=== PATIENT | female | born 1990 | race Caucasian/White ===

== ENCOUNTER 2020-07-04 10:07 | Emergency (ER) | payer OTHER, SELFPAY ==
--- NOTE | ~2020-07-04 | XR_ITS ---
EXAMINATION: XR knee RT 3V EXAM DATE: 07/04/2020 11:03 INDICATION: Initial encounter following injury, with pain of the right knee. Twisting. TECHNIQUE: Three projections of the right knee. There is no prior study for comparison. FINDINGS: No evidence osteochondral defect or joint body in the right knee joint. There are no acu te fractures or dislocations identified. There is no subcutaneous gas. No joint effusion. The soft t issue is unremarkable. There are no radiopaque foreign bodies. IMPRESSION: 1. Unremarkable right knee exam. Reviewed, dictated and finalized at location A.
[2020-07-04 10:12] VITALS: BP 158/114; PULSE 123; RESP 24; TEMP 36.5; O2SAT 99
--- NOTE | 2020-07-04 10:37 | ED.GENADULT ---
HPI - General Adult General Chief complaint: Extremity Injury, Lower Stated complaint: Right Knee Injury Time Seen by Provider: 07/04/20 10:08 Source: patient Mode of arrival: ambulatory Limitations: no limitations History of Present Illness HPI narrative: Patient is a 30-year-old female who presents to emergency department for evaluation of right knee pain patient notes she went on a hike with a friend and then developed pain in the knee and swelling notes that she has a history of issues with her knees secondary to athletics in the past patient on arrival to emergency department is in no distress took ibuprofen earlier today denies other injuries or complaints or any illness patient does note that she is anxious about the injury and possibility of needing surgery and being out of work but is otherwise in no distress and does not appear uncomfortable upon arrival Related Data Allergies Allergy/AdvReac Type Severity Reaction Status Date / Time No Known Allergies Allergy Verified 07/04/20 10:21 Review of Systems Review of Systems: All systems reviewed & are unremarkable except as noted in HPI and below PMFSH Surgical History Surgical History (Updated 07/04/20 @ 10:42 by Dereck Cintron PA-C) History of orthopedic surgery Social History Social History (Updated 07/04/20 @ 10:42 by Dereck Cintron PA-C) Smoking status: Never smoker Gender identity (if verbalized by the patient): Female Exam Narrative: Exam Narrative: GENERAL: Well-appearing, well-nourished, and in no acute distress. HEAD: Normocephalic, atraumatic. EYES: PERRLA and EOMI. ENT: Nares clear, no rhinorrhea or epistaxis. Mucous membranes moist. CHEST: Clear to auscultation. No respiratory distress. No wheezes rales or rhonchi HEART: Regular rate and rhythm. No murmur heard. Normal peripheral pulses. EXTREMITIES: Small area of swelling about the right knee no other abnormalities tender along the lateral aspect SKIN: Warm, dry, no rash. NEURO: No focal deficits. Alert and oriented x3. Neurovascularly intact PSYCH: Normal mood and affect. Course Course Emergency Course: Patient with nonconcerning x-ray will be discharged with Tray wrap did not want crutches will follow with orthopedic surgery and primary care for further evaluation. Patient agrees with this plan. Vital Signs Vital signs: Vital Signs Temperature 97.7 F 07/04/20 10:12 Pulse Rate 123 H 07/04/20 10:12 Respiratory Rate 24 H 07/04/20 10:12 Blood Pressure 158/114 H 07/04/20 10:12 Pulse Oximetry 99 07/04/20 10:12 Temperature 97.7 F 07/04/20 10:12 Pulse Rate 99 07/04/20 11:18 Respiratory Rate 18 07/04/20 11:18 Blood Pressure 155/116 H 07/04/20 11:18 Pulse Oximetry 99 07/04/20 11:18 Medical Decision Making MDM Narrative Medical decision making narrative: Patients injury or pain is consistent with musculoskeletal etiology. No signs of neurological or vascular compromise on exam. Compartments and tisues are soft without signs of compartment syndrome. Pain is felt appropriate for further evaluation on an outpatient basis. Vital Signs Vital Signs: Vital Signs Temperature 97.7 F 07/04/20 10:12 Pulse Rate 123 H 07/04/20 10:12 Respiratory Rate 24 H 07/04/20 10:12 Blood Pressure 158/114 H 07/04/20 10:12 Pulse Oximetry 99 07/04/20 10:12 Temperature 97.7 F 07/04/20 10:12 Pulse Rate 99 07/04/20 11:18 Respiratory Rate 18 07/04/20 11:18 Blood Pressure 155/116 H 07/04/20 11:18 Pulse Oximetry 99 07/04/20 11:18 Imaging Data Radiologist's impression: ITS Impressions Knee X-Ray 07/04/20 11:06 IMPRESSION: 1. Unremarkable right knee exam. Discharge Plan Discharge Clinical Impression: Acute internal derangement of knee Patient Disposition: Home, Self-Care Condition: Stable Instructions: Antibiotic Form, Arthralgia (ED) Additional Instructions: Wear Tray wrap with limited weight on the affec
[2020-07-04 10:40] VITALS: BP 156/108; PULSE 119; RESP 19; O2SAT 100
[2020-07-04] MEDS: ACETAMINOPHEN 325 MG TABLET 650 MG PO (10:40)
[2020-07-04 11:18] VITALS: BP 155/116; PULSE 99; RESP 18; O2SAT 99
[2020-07-04 11:43] VITALS: BP 152/98; PULSE 101; RESP 21; O2SAT 100
== END 2020-07-04 11:44 | disposition home or self-care (01) ==
PROVIDERS: Emergency Provider Emergency Medicine
DX: S83.206A Unspecified tear of unspecified meniscus, current injury, right knee, initial encounter (principal); X50.9XXA Other and unspecified overexertion or strenuous movements or postures, initial encounter
CPT/HCPCS: 73562; 99283; A9270

== ENCOUNTER 2021-08-11 14:15 | Emergency (ER) | payer OTHER, SELFPAY ==
[2021-08-11 14:16] VITALS: BP 147/91; PULSE 136; RESP 18; TEMP 36.4; O2SAT 100
--- NOTE | 2021-08-11 14:34 | ED.SKABFB ---
HPI - Skin/Abscess/Foreign Bdy General Chief complaint: Skin/Abscess/Foreign Body Stated complaint: tooth abcess Time Seen by Provider: 08/11/21 14:25 Source: patient Mode of arrival: ambulatory Limitations: no limitations History of Present Illness HPI narrative: This is a 31 year old female that presents to the ER for a dental abscess. Reports she noted some pain in her tooth 2 days ago. Yesterday she noted some swelling around the area. Today when she woke up the swelling was much worse. She went to urgent care who sent here here for evaluation. Denies fever or drainage. Related Data Allergies Allergy/AdvReac Type Severity Reaction Status Date / Time cefixime [From Suprax] Allergy Mild unknown Verified 08/11/21 14:15 erythromycin base AdvReac Mild rash Verified 08/11/21 14:15 [From Pediazole] sulfisoxazole AdvReac Mild rash Verified 08/11/21 14:15 [From Pediazole] Review of Systems Review of Systems: CONSTITUTIONAL: Denies fever ENT: Reports dentalgia All systems reviewed & are unremarkable except as noted in HPI and below PMFSH Past Medical History Medical History (Updated 08/11/21 @ 15:03 by Jadyn Hernandez PA-C) Allergies Arthritis Right knee pain Surgical History Surgical History History of orthopedic surgery left ankle, 2014 Family History Family History (Updated 08/01/20 @ 14:48 by Darrick Viramontes MD) Other Arthritis Social History Social History Smoking status: Never smoker Alcohol intake: never Additional occupation/education comments: [employer] Gender identity (if verbalized by the patient): Female Exam Narrative: GENERAL: Well-appearing, well-nourished, and in no acute distress. HEAD: Normocephalic, atraumatic. EYES: EOMI. ENT: Mucous membranes moist. Mild to moderate right sided facial swelling without erythema. Oropharynx without tonsillar hypertrophy exudate or other lesions. Tooth #3 with surrounding erythema with central fluctuance NECK: Supple. No adenopathy or masses. CHEST: Clear to auscultation. No respiratory distress. No wheezes rales or rhonchi HEART: Regular rate and rhythm. No murmur heard. Normal peripheral pulses. EXTREMITIES: Normal range of motion. No edema. SKIN: Warm, dry, no rash. NEURO: No focal deficits. Alert and oriented x3. PSYCH: Normal mood and affect Course Vital Signs Vital signs: Vital Signs Temperature 97.6 F 08/11/21 14:16 Pulse Rate 136 H 08/11/21 14:16 Respiratory Rate 18 08/11/21 14:16 Blood Pressure 147/91 H 08/11/21 14:16 Pulse Oximetry 100 08/11/21 14:16 Temperature 97.6 F 08/11/21 14:16 Pulse Rate 110 H 08/11/21 15:48 Respiratory Rate 16 08/11/21 15:48 Blood Pressure 147/91 H 08/11/21 14:16 Pulse Oximetry 99 08/11/21 15:48 Procedures Abscess I/D oral: Date of Incision: 08/11/21 Time of Incision: 14:48 Side (if applicable): right Local Anesthetic: none (Cetacaine) Technique: incised with #11 blade Packing used?: none I&D Results: Pus and Blood MDM - Skin/Abscess/Foreign Bdy MDM Narrative Medical decision making narrative: Patient presents to the ER for dental abscess. She is afebrile and nontoxic appearing. Tachycardic upon arrival. This improved with treatment of her pain. Abscess was successfully drained. Patient given first dose of antibiotic in the ED. Will be discharged with oral antibiotics. Instructed to have close follow up with a dentist. She was given warnings to return to the ER Critical Care Time Critical Care Time Critical Care Time: No Discharge Plan Discharge Clinical Impression: Dental abscess Patient Disposition: Home, Self-Care Condition: Stable Instructions: Antibiotic Form, Abscess (ED) Additional Instructions: Return to the Emergency Department if you experience fever >101, increasing swelling and
[2021-08-11] MEDS: KETOROLAC 30 MG/ML VIAL (*BKC) IM (15:23)
[2021-08-11] MEDS: BENZOCAINE/TETRACAINE SPRAY (*SP) 56 ML AEROSOL 1 SPRAY MUCOUS MEM (15:24)
[2021-08-11 15:48] VITALS: PULSE 110; RESP 16; O2SAT 99
== END 2021-08-11 15:49 | disposition home or self-care (01) ==
PROVIDERS: Emergency Provider Emergency Medicine
DX: K04.7 Periapical abscess without sinus (principal)
CPT/HCPCS: 41800; 96372; 99284; A9270; J1885

== ENCOUNTER 2021-12-12 18:17 | Emergency (ER) | payer OTHER, SELFPAY ==
[2021-12-12] VITALS (10 sets, daily range): BP systolic 114–131; BP diastolic 64–98; PULSE 105–116; RESP 14–19; TEMP 36.6; O2SAT 100
--- NOTE | ~2021-12-12 | CT_ITS ---
EXAMINATION: CTA chest PE protocol DATE: 12/12/2021 21:37 CDT INDICATION: Shortness of breath. Positive d-dimer. TECHNIQUE: Computed tomographic angiography (CTA) of the chest was performed with 100 mL Omnipaque-35 0 intravenous contrast. The dose-length product was 827.77 mGy-cm. Maximum intensity projection 3D-re constructions of the aorta and other arteries were constructed by the technologist on a separate work station. Automated exposure control and iterative reconstruction technique were employed. COMPARISON: None. FINDINGS: No significant pleural or pericardial effusion. Heart size is normal. No evidence for thora cic aortic aneurysm or dissection. No thoracic lymphadenopathy. Study is technically adequate without evidence for pulmonary embolism. No endobronchial lesions. Gallstones. Splenomegaly. No focal airspa ce disease. No pneumothorax. No endobronchial lesions. IMPRESSION: 1. No evidence for pulmonary embolism. No acute cardiopulmonary disease. 2: Cholelithiasis. 3: Splenomegaly. Reviewed, dictated and finalized at location A.
--- NOTE | 2021-12-12 18:18 | ECG_ITS ---
Measurements Intervals [place] Rate: 113 P: 42 OK: 141 QRS: 32 QRSD: 77 T: 39 QT: 307 QTc: 422 Interpretive Statements SINUS TACHYCARDIA BORDERLINE T WAVE ABNORMALITY- ANTERIOR LEADS ABNORMAL ECG NO PREVIOUS ECG AVAILABLE FOR COMPARISON Electronically Signed On 12-12-2021 21:22:33 CDT by Ted Mehta D.O.
--- NOTE | 2021-12-12 18:24 | ED.URI ---
HPI - URI/Sore Throat General Chief Complaint: Upper Respiratory Infection Stated Complaint: STACH, FATIGUE Time Seen by Provider: 12/12/21 18:24 History of Present Illness HPI Narrative: Patient is a 31-year-old female presenting with a cough. Patient states that yesterday, she developed body aches and a sore throat. Her symptoms continued through today and she developed a dry cough so she went to urgent care. States she has a history of recurrent strep infections so that is what she assumed it was. When she got to urgent care, she was found to have a heart rate in the 150s so she was brought to the ER for further evaluation. Patient denies chest pain, shortness of breath, lightheadedness, leg swelling. States that currently she just has a sore throat. She denies headache, fevers, abdominal pain, nausea or vomiting, diarrhea. Patient is vaccinated for COVID-19. Related Data Allergies Allergy/AdvReac Type Severity Reaction Status Date / Time cefixime [From Suprax] Allergy Mild unknown Verified 12/12/21 18:23 erythromycin base AdvReac Mild rash Verified 12/12/21 18:23 [From Pediazole] sulfisoxazole AdvReac Mild rash Verified 12/12/21 18:23 [From Pediazole] Review of Systems Review of Systems: All systems reviewed & are unremarkable except as noted in HPI and below PMFSH Past Medical History Medical History Allergies Arthritis Right knee pain Surgical History Surgical History History of orthopedic surgery left ankle, 2014 Family History Family History Other Arthritis Social History Social History Smoking status: Never smoker Alcohol intake: never Additional occupation/education comments: [employer] Gender identity (if verbalized by the patient): Female Exam Narrative: GENERAL: Well-appearing, well-nourished, and in no acute distress. HEAD: Normocephalic, atraumatic. EYES: PERRLA and EOMI. ENT: Nares clear, no rhinorrhea or epistaxis. Mucous membranes moist. Posterior pharynx with erythema, no exudates NECK: Supple. CHEST: Clear to auscultation. No respiratory distress. HEART: Tachycardic, regular rhythm. No murmur heard. Normal peripheral pulses. ABDOMEN: Soft, nontender, nondistended, normal active bowel sounds. EXTREMITIES: Normal range of motion. No edema. SKIN: Warm, dry, no rash. NEURO: No focal deficits. Alert and oriented x3. PSYCH: Normal mood and affect. Course Vital Signs Vital signs: Vital Signs Temperature 97.9 F 12/12/21 18:19 Pulse Rate 114 H 12/12/21 18:19 Respiratory Rate 14 12/12/21 18:19 Blood Pressure 131/98 H 12/12/21 18:19 Pulse Oximetry 100 12/12/21 18:19 Temperature 97.9 F 12/12/21 18:19 Pulse Rate 116 H 12/12/21 21:00 Respiratory Rate 18 12/12/21 21:00 Blood Pressure 124/82 12/12/21 20:01 Pulse Oximetry 100 12/12/21 21:00 Oxygen Delivery Room Air 12/12/21 18:27 MDM - URI/Sore Throat MDM Narrative Medical decision making narrative: Patient is a 31-year-old female presenting with tachycardia and URI symptoms. On arrival, patient is tacky in the 110s to 120s. Normotensive and saturating well on room air. Exam otherwise remarkable for the above. Pt is positive for COVID. UA is contaminated, patient denies any urinary symptoms. Blood work remarkable for an elevated D-dimer. CT chest shows no evidence of pulmonary embolism. Patient continues to saturate 100% on room air. Discussed appropriate supportive care and return precautions. Advised following up with primary care. Patient voiced understanding and is agreeable with plan. Discharged in stable condition. Lab Data Result diagrams: 12/12/21 19:08 12/12/21 19:08 Labs: Lab Results 12/12/21 12/12/21
[2021-12-12 19:13] LABS: Basophils Percent Auto 0.8 % (0.2-1.2); Eosinophils Absolute Auto 0.1 K/mm3 (0-0.3); Eosinophils Percent Auto 2.2 % (0-4.4); Hematocrit 36.9 % (37.0-47.0); Hemoglobin 12.6 g/dL (12.0-15.0); Immature Granulocyte Absolute 0.05 K/mm3 (0.00-0.031); Lymphocytes Absolute Auto 0.66 K/mm3 (0.9-3.2); Lymphocytes Percent Auto 13.2 % (18.3-44.2); Mean Corpuscular HGB Conc 34.1 g/dl (32-36); Mean Corpuscular Hemoglobin 30.7 pg (26-34); Mean Corpuscular Volume 89.8 fl (80-100); Mean Platelet Volume 9.8 fl (7.4-10.4); Monocytes Absolute Auto 0.6 K/mm3 (0.1-0.6); Neutrophils Absolute Auto 3.5 K/mm3 (1.3-6.7); Neutrophils Percent Auto 70.8 % (45.5-73.1); Platelet Count Result 154 k/mm3 (150-375); Red Blood Count 4.11 M/mm3 (4.2-5.4); Red Cell Distribution Width 12.7 % (11.5-14.5)
[2021-12-12] MEDS: SODIUM CHLORIDE 0.9% IV 1,000 ML 999 ML IV CONT ×2 (19:19→19:20)
[2021-12-12] MEDS: KETOROLAC 15 MG/ML VIAL (*BKC) IV PUSH (19:20)
[2021-12-12 19:35] LABS: Alanine Aminotransferase 25 U/L (6-35); Albumin Level 3.9 g/dL (3.5-5.1); Alkaline Phosphatase 59 U/L (38-126); Anion Gap 8 mmol/L (8-16); Aspartate Amino Transferase 34 U/L (14-36); Bilirubin,Total 0.6 mg/dL (0.2-1.3); Blood Urea Nitrogen 14 mg/dL (7-17); Calcium 9.1 mg/dL (8.4-10.2); Carbon Dioxide 25 mmol/L (22-30); Chloride 102 mmol/L (98-107); Estimated CRCL calculation 100 ml/min; Estimated Glomerular Filt Rate > 60; Glucose 106 mg/dL (65-110); Potassium 3.6 mmol/L (3.4-5.0); Sodium 135 mmol/L (137-145)
[2021-12-12 19:39] LABS: Appearance Urine Clear (Clear); Bilirubin Urine Negative (Negative); Blood Urine 2+ (Negative); Color Urine Yellow (Yellow); Glucose Urine UA Negative (Negative); Ketones Urine Negative (Negative); Leukocyte Esterase Ur 3+ LEU/UL (Negative); Nitrate Urine Negative (Negative); Protein Urine Trace mg/dL (Negative); Urobilinogen Urine 0.2 mg/dL (<2.0); pH Urine 6.5 (5.0-9.0)
[2021-12-12 19:42] LABS: Bacteria Urine Trace /hpf; Mucus Urine Rare /lpf; RBC Urine 21-50 /hpf (0-2); Squamous Epithelial Cell Urine Many /hpf (Few)
[2021-12-12 19:45] LABS: Add Urine Microscopic? YES
[2021-12-12 19:50] LABS: Influenza A QL RT-PCR Negative (Negative); Influenza B QL RT-PCR Negative (Negative); SARS-CoV-2 RNA PCR Positive
[2021-12-12 20:41] LABS: D Dimer 0.56 ug/mL (<0.48)
== END 2021-12-12 22:04 | disposition home or self-care (01) ==
PROVIDERS: Emergency Provider Emergency Medicine
DX: U07.1 COVID-19 (principal); M19.90 Unspecified osteoarthritis, unspecified site; R00.0 Tachycardia, unspecified; R94.31 Abnormal electrocardiogram [ECG] [EKG]
CPT/HCPCS: 36415; 71275; 80053; 81001; 81025; 85025; 85380; 87081; 87502; 87880; 93005; 96361; 96374; 99284; C9803; J1885; J7030; Q9967; U0003; U0005